=== PATIENT | male | born 1995 | race Caucasian/White ===

== ENCOUNTER 2022-06-10 16:03 | Emergency (ER) | payer BC ==
[~2022-06-10] VITALS: Ht 185.4 cm; Wt 145.1 kg
[2022-06-10 16:08] VITALS: BP 158/89
--- NOTE | 2022-06-10 16:55 | NUR ---
PATIENT BIB P [facility] [employer]. PATIENT EXAMINED BY DR. JIANG. PATIENT MEDICALLY CLEARED AND RELEASED IN CUSTODY IN STABLE CONDITION. ORIGINAL PRE-BOOK FORM GIVEN TO OFFICER ALISTAIR # [id number].
--- NOTE | 2022-06-10 16:55 | NUR ---
Note cristi in ED - 06/10/22 at 1715 by [facility] Patient discharged with v/s stable. Written and verbal after care instructions FOR [facility] [employer] given and explained. Patient verbalized understanding. Ambulatory with in custody. All questions addressed prior to discharge. Advised to follow up with PMD.
== END 2022-06-10 16:55 ==
LOC: MED 16:03
DX: Z04.1 Encounter for examination and observation following transport accident (principal); V89.2XXA Person injured in unspecified motor-vehicle accident, traffic, initial encounter; Y93.89 Activity, other specified; Y92.410 Unspecified street and highway as the place of occurrence of the external cause; Y99.8 Other external cause status
CPT/HCPCS: 99283